=== PATIENT | male | born 1970 | race Caucasian/White ===

== ENCOUNTER → 2017-05-09 | Outpatient (CLI) | payer BC ==
--- NOTE | 2017-05-09 16:12 | Diagnostic Imaging Report ---
PROCEDURE:TESTICULAR ULTRASOUND and Testicular Dopplers COMPARISON:None. INDICATIONS:Lump In Testicle. Vasectomy in 2005 TECHNIQUE: Adams-scale and color doppler images of the testicles and scrotal contents were obtained. Duplex imaging with spectral waveform analysis was performed of the testicular arteries and veins. FINDINGS: RIGHT SCROTUM: Testicle: 6.2 x 2.3 x 3.1 cm Epididymal head: Epididymal head measures 1.2 x 0.5 x 1.0 cm. 0.2 x 0.2 x 0.4 cm right edematous. 0.8 x 0.7 x 0.7 cm complex right epididymal head cyst/spermatocele. 1.0 x 1.0 x 1.0 cm (the area of palpation) area in the epididymal tail which may represent masslike area versus a cluster of tubules. This remain unchanged on Valsalva or patient standing. Hydrocele: None Varicocele: None. LEFT SCROTUM: Testicle: 5.6 x 2.1 x 3.4 cm. Epididymal head: Epididymal head measures 1.1 x 0.7 x 1.6 cm. 0.4 x x 0.3 x 0.3 cm left epididymal head cyst. Hydrocele: None. Varicocele: None. CONCLUSION: 1. 0.8 cm complex right epididymal head cyst/spermatocele. 2. 1.0 cm area of palpation in the right epididymal tail. This may represent a cluster of tubules from previous vastectomy. Alternatively this could represent recent infection. Dictated by: Alonzo Cruz M.D. on 05/09/2017 at 16:12 Electronically approved by: Alonzo Cruz M.D. on 05/09/2017 at 16:12
== END ==
LOC: US 14:31
PROVIDERS: ATTEND Family Medicine
DX: N50.9 Disorder of male genital organs, unspecified (principal)
CPT/HCPCS: 76870

== ENCOUNTER → 2017-07-12 | Outpatient (CLI) | payer BC ==
--- NOTE | 2017-07-12 17:36 | Diagnostic Imaging Report ---
PROCEDURE:TESTICULAR ULTRASOUND COMPARISON:[facility], US, US TESTICULAR, 05/09/2017, 14:47. [facility], US, US TESTICULAR DOPPLER LTD, 07/12/2017, 15:57. INDICATIONS:Spermatocele epididymis, vasectomy 2004. TECHNIQUE: Adams-scale and color Doppler images of the testicles and scrotal contents were obtained. Duplex imaging with spectral waveform analysis was performed of the testicular arteries and veins. FINDINGS: RIGHT SCROTUM: Testicle: Measures 2.5 x 3.5 x 5.7 cm. The echotexture is normal. No mass. Epididymal head: Measures 4 x 11 x 13 mm. A cyst in the head measures 2 x 2 x 2 mm. A second cyst measures 4 x 4 x 5 mm. The tail of the epididymis measures 11 x 11 x 14 mm. Associated inflammation has resolved. No mass. The palpable abnormality on previous exam cannot be reproduced on current study. Hydrocele: None Varicocele: None LEFT SCROTUM: Testicle: Measures 2.0 x 2.3 x 5.6 cm. The echotexture is normal. No mass Epididymal head: Measures 8 x 16 x 15 mm. A cyst in the head measures 3 x 3 x 4 mm. Hydrocele: None Varicocele: None No evidence of hernia. CONCLUSION: 1. Normal testes. 2. Bilateral epididymal head cysts. No suspicious features. 3. Prominent and stable right epididymal tail without evidence of mass or inflammation. Dictated by: Saniya Monson M.D. on 07/12/2017 at 17:39 Electronically approved by: Saniya Monson M.D. on 07/12/2017 at 17:39
--- NOTE | 2017-07-12 17:38 | Diagnostic Imaging Report ---
PROCEDURE:TESTICULAR DOPPLER ULTRASOUND COMPARISON:None. INDICATIONS:Not provided. TECHNIQUE: Adams-scale and color Doppler images of the testicles and scrotal contents were obtained. Duplex imaging with spectral waveform analysis was performed of the testicular arteries and veins. FINDINGS: Please see testicular ultrasound report [id number] for findings. Dictated by: Saniya Monson M.D. on 07/12/2017 at 17:41 Electronically approved by: Saniya Monson M.D. on 07/12/2017 at 17:41
== END ==
LOC: US 15:20
PROVIDERS: ATTEND Urology
DX: N43.41 Spermatocele of epididymis, single (principal)
CPT/HCPCS: 76870; 93976